=== PATIENT | female | born 1950 | race Caucasian/White ===

== ENCOUNTER 2017-01-24 07:34 | Day surgery (SDC) | payer OTHER ==
[2017-01-23 17:34] VITALS: BMI 25.6
[2017-01-24] MEDS ORDERED: PROPOFOL 20 ML ONE ×3 (09:40)
[2017-01-24] MEDS ORDERED: ROPIVACAINE HCL 0.5% 30ML VIAL ONE (09:43)
[2017-01-24] MEDS ORDERED: MIDAZOLAM HCL 2 MG/2 ML SINGLE DOSE VIAL ONE ×2 (09:51)
--- NOTE | 2017-01-24 10:03 | HP ---
Satellite [facility] - Chief Complaint Chief Complaint: right shoulder pain, weakness, poor ROM History of Present Illness: over 1 year s/p fall, right RTC tear History Source: Patient Limitations to Obtaining History: No Limitations - Past Medical History Allergies/Adverse Reactions: Allergies Allergy/AdvReac Type Severity Reaction Status Date / Time No Known Drug Allergies Allergy Verified 01/23/17 17:34 - Current Medications Current Medications: Home Medications Medication Instructions Recorded Aspirin Coated [Ecotrin -] 81 mg PO DAILY 01/23/17 Atorvastatin Ca [Lipitor] 20 mg PO HS 01/23/17 Levothyroxine [Synthroid -] 25 mcg PO DAILY 01/23/17 Meloxicam [Mobic] 15 mg PO DAILY 01/23/17 Nortriptyline HCl [Pamelor -] 25 mg PO HS 01/23/17 Omeprazole 20 mg PO DAILY 01/23/17 Satellite Physical Exam - Physical Examination Vital Signs: Vital Signs Period Temp Pulse Resp BP Sys/Victoria Pulse Ox Last 24 Hr 97.9 F-97.9 F 70-70 16-16 129-129/77-77 99 General Appearance: Well Nourished ENT: Clear Lung: Clear to auscultation Heart: Regular rate & rhythm Breasts: Soft Abdomen: Soft Extremities: No edema Satellite Impression/Plan - Impression/Plan Impression: right shoulder RTC tear, impingement, possible labral tear Operative Procedure: right shoulder arthroscopy, decompression, possible RTC and /or labral repair Date to be Performed: 01/24/17
[2017-01-24] MEDS ORDERED: PROMETHAZINE HCL 25 MG/1 ML VIAL IVPUSH PRN (10:40)
[2017-01-24] MEDS ORDERED: oxyCODONE HCL 5 MG TABLET PO PRN (10:40)
[2017-01-24] MEDS ORDERED: ONDANSETRON 4 MG/2 ML VIAL IVPUSH PRN (10:40)
[2017-01-24] MEDS ORDERED: LACTATED RINGERS SOLUTION 1,000 ML IV SCH (10:45)
[2017-01-24] MEDS ORDERED: ceFAZolin SODIUM 1 GM VIAL IVPB ONE (10:59)
[2017-01-24] MEDS ORDERED: ePHEDrine SULFATE 50 MG/1 ML AMPULE ONE (11:23)
--- NOTE | 2017-01-24 12:10 | OP ---
Operative Note - Note: Operative Date: 01/24/17 ([facility]) Pre-Operative Diagnosis: right shoulder rct, impingement Operation: right shoulder arthroscopy with SAD, DCE, mini-open RCR, lipoma excision Implants: 2 arthrex swivelocks Post-Operative Diagnosis: Same as Pre-op Surgeon: Tylor Whalen Pencil Maker: Sebastian Barksdale Anesthesiologist/FARM MARKETER: Judd Merritt Anesthesia: General, Local Specimens Removed: lipoma, shavings Estimated Blood Loss (mls): 10 Operative Report Dictated: Yes
[2017-01-24 14:53] VITALS: BP 114/62; PULSE 72; TEMP 97.5
--- NOTE | 2017-01-24 21:00 | OP ---
DATE OF OPERATION: 01/24/2017 PREOPERATIVE DIAGNOSES: Right shoulder rotator cuff tear, subacromial impingement, acromioclavicular joint arthritis, possible labral tear, and subcutaneous lipoma. SURGERY: Right shoulder arthroscopy, subacromial decompression, distal clavicle excision, mini open rotator cuff repair, and open lipoma excision. SURGEON: Tylor Whalen MD DIRECTOR FURNITURE: HEIDI Castro; . ANESTHESIA: Right interscalene block and laryngeal mask anesthesia. BLOOD LOSS: 50 mL. BLOOD GIVEN: None. FLUID REPLACEMENT: 700 mL. DRAINS: None. COMPLICATIONS: None. SPECIMEN: None. BLOOD GIVEN: None. This patient is a 66-year-old female with a preoperative diagnosis of a right shoulder subacromial impingement, rotator cuff tear, AC joint arthritis, subcutaneous lipoma, and possible labral tear. After understanding the potential risks, complications, alternatives, and benefits to surgical versus nonsurgical treatment, the patient elected to undergo this procedure. The patient was brought to the operating room, peripheral IV placed, IV sedation given. Then 1 g of IV Ancef was given. A right interscalene block was performed. LM anesthesia was induced. As mentioned, she was placed into the beach chair position with ample padding throughout. The right upper extremity was prepped and draped in sterile fashion. The bony landmarks were marked out with a marking pen. A posterior portal was established. A diagnostic glenohumeral arthroscopy was performed. The patient was seen to have a significant tear of the rotator cuff. It was complete but not particularly retracted and looked very fixable. The patient had a lot of intraarticular debris and synovitis. There was fraying of the labrum, and some arthritis of the humeral head. An anterior portal was established under direct visualization using spinal needle and number 15 scalpel blade. A green cannula was introduced into the glenohumeral joint. An ArthroCare wand and straight shaver was used to debride the undersurface of the rotator cuff, remove the debris, do a gentle debridement chondroplasty, and probe the labrum (which was fine, and it did not need to be fixed). A partial synovectomy was performed as well. Next, our attention turned to the subacromial space. The patient had a tremendous amount of inflammatory bursitis. An extensive debridement was done with the ArthroCare wand and the straight shaver. This revealed very significantly arthritic undersurface of the AC joint. There were large bony spurs to the undersurface of the acromion and the clavicle, and after the extensive bursectomy, a 5.5-mm oval bur was used to do a bony subacromial decompression as well as a distal clavicle excision. Once this was done, the shaver was reintroduced into the joint, and all debris was removed. A bursectomy was completed, and the rotator cuff was visualized from the side as well. It was a crescent shape. It looked quite fixable. Again, it was debrided and cleaned with the shaver, and the shaver and the bur were used to remove a large ridge on the humeral head and mildly decorticate the humeral head at the landing bed of the rotator cuff for future repair. Next, we used, under arthroscopic visualization, the Rollerion needle passer and put in 6 FiberWire sutures. We were able to mobilize it under direct visualization using the Mcneil elevator, and overall it came down quite nicely. Next, we converted to a mini open repair, extended the lateral portal incision with a number 15 scalpel blade. Subcutaneous hemostasis was achieved with Bovie cautery. First the Gelpi, then the Don retractors were used for direct visualization. Additional open bursectomy was done. The deltoid was split in line with its fibers, and overall I could see the rotator cuff quite well, and it came down quite nicely. We threaded 6 tails through an anterior Swivel-Lock and 6 tails through a posterior Swivel-Lock, and put them down into the humeral head in the standard fashion. The excess tails were removed. The humeral head moved as a unit with the rotator cuff. There was complete coverage and it was a very repairable rotator cuff tear. The area was copiously irrigated and washed out. Closure was done with 0 Vicryl in the deep deltoid layer after the rotator cuff repair. Next, our attention turned to a very large subcutaneous lipoma that the patient had between the acromion and undersurface of the skin. We reviewed it on MRI, and it did have the consistency of a normal lipoma, and under direct visualization it also looked like a large standard lipoma. There was nothing irregular about it. It was well circumscribed, not infiltrative, and not heterogeneous at all. Therefore, I did an open lipoma excision, as it was so big, on the superior surface of the right acromion. I did not feel the need to pass it off the field as specimen. The deep dermal layer was closed with 2-0 Vicryl suture, and the final skin reapproximation was done with a running subcuticular 3-0 V-Loc suture. The anterior and posterior portals were closed with 3-0 nylon in a fashion. The area was washed and dried, SwiftSet skin glue used on all the portals, and a 6-inch and two 4-inch Aquacels were used. The patient was taken down out of the beach chair position. A right shoulder immobilizer was placed. She was extubated. Total operative time was about 50 minutes. There were no complications during the case. The patient tolerated the procedure quite well and was brought to the ambulatory recovery room in stable condition. Elba [id number]
--- NOTE | 2017-01-25 14:50 | PATH ---
Surgical Pathology Report Patient Name: TORSTEN BOYLE [facility]. Rec. #: [id number] /Age/Gender: 1950 (Age: 66) / F Account: [id number] Location: [facility] Taken: 01/24/2017 Received: 01/24/2017 Reported: 01/25/2017 Physicians: Tylor Whalen M.D. Specimen(s) Received SHAVINGS Clinical History Right shoulder rotator cuff tear Final Diagnosis SOFT TISSUE, RIGHT SHOULDER, ARTHROSCOPIC SHAVINGS: SYNOVIUM AND FIBROCARTILAGE WITH MYXOHYALINE DEGENERATION. FRAGMENTS OF UNREMARKABLE BONE AND SKELETAL MUSCLE. Electronically Signed Lino Aviles M.D. Gross Description Received in formalin, labeled "right shoulder shavings" is a 3.5 x 3.2 x 0.4 cm aggregate of smith-yellow soft tissue fragments. A jewelry sales representative portion is submitted in one cassette. /01/24/201701/24/2017
== END 2017-01-24 14:53 | disposition home or self-care (01) ==
LOC: JASU-SURG 07:34
PROVIDERS: ATTEND Orthopaedic Surgery
PROC: 0PB94ZZ Excision of Right Clavicle, Percutaneous Endoscopic Approach (ICD-10-PCS; 2017-01-24)
PROC: 0LQ10ZZ Repair Right Shoulder Tendon, Open Approach (ICD-10-PCS; 2017-01-24)
PROC: 0JBD0ZZ Excision of Right Upper Arm Subcutaneous Tissue and Fascia, Open Approach (ICD-10-PCS; 2017-01-24)
PROC: 0RBJ4ZZ Excision of Right Shoulder Joint, Percutaneous Endoscopic Approach (ICD-10-PCS; principal; 2017-01-24 10:00)
DX: M75.101 Unspecified rotator cuff tear or rupture of right shoulder, not specified as traumatic (principal); M75.41 Impingement syndrome of right shoulder; M19.011 Primary osteoarthritis, right shoulder; D17.39 Benign lipomatous neoplasm of skin and subcutaneous tissue of other sites
CPT/HCPCS: 88304-TC; 94760

== ENCOUNTER 2017-03-30 08:58 | Day surgery (SDC) | payer OTHER ==
[2017-03-29 12:11] VITALS: BMI 26.5
[2017-03-30 11:26] VITALS: TEMP 98
[2017-03-30 12:59] VITALS: BP 118/82; PULSE 63
--- NOTE | 2017-04-02 13:22 | PATH ---
Surgical Pathology Report Patient Name: TORSTEN BOYLE [facility]. Rec. #: [id number] /Age/Gender: 1950 (Age: 66) / F Account: [id number] Location: U-ENDOSCOPY Taken: 03/30/2017 Received: 03/30/2017 Reported: 04/02/2017 Physicians: Roberto Benton M.D. Specimen(s) Received A: BX DISTA TRANSVERSE COLON POLYP B: BX PROXIMAL TRANSVERSE COLON POLYP C: BX RIGHT COLON POLYP D: BX COLON LIPOMA Clinical History Screening AVM; colon polyps; right colon lipoma; diverticulosis Final Diagnosis A. COLON, DISTAL TRANSVERSE, POLYP, POLYPECTOMY: ADENOMATOUS POLYP AND ADDITIONAL FRAGMENTS OF COLONIC MUCOSA WITH FOCAL SURFACE HYPERPLASTIC CHANGE. B.COLON, PROXIMAL TRANSVERSE, POLYP, BIOPSY: TUBULAR ADENOMA. C. COLON, RIGHT, POLYP, BIOPSY: TUBULAR ADENOMA. PROMINENT SUBMUCOSAL ADIPOSE TISSUE (SEE COMMENT). D. COLON, RIGHT, LIPOMA, BIOPSY: BENIGN COLONIC MUCOSA WITH PROMINENT SUBMUCOSAL ADIPOSE TISSUE (SEE COMMENT). Comment: The findings are compatible with lipoma in proper endoscopic settings. Electronically Signed Lino Aviles M.D. Gross Description A. Received in formalin, labeled "cold snared distal transverse polyp" are 2 smith, irregular portions of soft tissue measuring 0.3-0.6 cm in greatest dimension. The specimens are submitted in toto in one cassette. B. Received in formalin, labeled "biopsy proximal transverse polyp" is a smith, irregular portion of soft tissue measuring 0.3 cm in greatest dimension. The specimen is submitted in toto in one cassette. C. Received in formalin, labeled "biopsy right colon polyp" are 2 smith, irregular portions of soft tissue measuring 0.3 cm in greatest dimension. The specimens are submitted in toto in one cassette. D. Received in formalin, labeled "biopsy right lipoma" are 2 smith, irregular portions of soft tissue measuring 0.3-0.4 cm in greatest dimension. The specimens are submitted in toto in one cassette. [facility]/03/30/2017 [facility]/03/30/2017
== END 2017-03-30 12:45 | disposition home or self-care (01) ==
LOC: JASU-ENDO 08:58
PROVIDERS: ATTEND Internal Medicine Gastroenterology
PROC: 0DBF8ZX Excision of Right Large Intestine, Via Natural or Artificial Opening Endoscopic, Diagnostic (ICD-10-PCS; 2017-03-30)
PROC: 0DBK8ZX Excision of Ascending Colon, Via Natural or Artificial Opening Endoscopic, Diagnostic (ICD-10-PCS; 2017-03-30)
PROC: 0DBL8ZX Excision of Transverse Colon, Via Natural or Artificial Opening Endoscopic, Diagnostic (ICD-10-PCS; principal; 2017-03-30 10:00)
DX: Z12.11 Encounter for screening for malignant neoplasm of colon (principal); D12.2 Benign neoplasm of ascending colon; D12.3 Benign neoplasm of transverse colon; D17.5 Benign lipomatous neoplasm of intra-abdominal organs; K55.20 Angiodysplasia of colon without hemorrhage; K64.8 Other hemorrhoids
CPT/HCPCS: 88305-TC

== ENCOUNTER 2018-06-16 10:07 | Emergency (ER) | payer MEDICARE ==
[2018-06-16 10:16] VITALS: BP 134/69; PULSE 83; TEMP 98.9; BMI 25.8
--- NOTE | 2018-06-16 11:32 | PDOC ---
History of Present Illness - General Chief Complaint: Injury Stated Complaint: LEG AND KNEE PAIN DO TO A FALL Time Seen by Provider: 06/16/18 10:18 - History of Present Illness Initial Comments: 06/16/18 10:42 CHIEF COMPLAINT: fall HISTORY OF PRESENT ILLNESS: 67 yo F with hx of HTN and HLD presents to [facility] track s/p fall yesterday. Patient states she was walking down stairs and twisted her right foot/ankle and landed on her knees and hit her head on the right side against the wall. Patient states she did not hit her head on the ground and denies any vomiting or LOC, but reports a slight headache last night. Patient denies taking any anticoagulants. No recent travel or sick contacts. PAST MEDICAL HISTORY: Denies past medical history FAMILY HISTORY: Denies SOCIAL HISTORY: Denies tobacco, alcohol, illicit drug use. SURGICAL HISTORY: Denies ALLERGIES: No known drug allergies REVIEW OF SYSTEMS General/Constitutional: Denies fever or chills. Denies weakness, weight change. HEENT: Denies change in vision. Denies ear pain or discharge. Denies sore throat. Cardiovascular: Denies chest pain or shortness of breath. Respiratory: Denies cough, wheezing, or hemoptysis. Gastrointestinal: Denies nausea, vomiting, diarrhea or constipation. Denies rectal bleeding. Genitourinary: Denies dysuria, frequency, or change in urination. Musculoskeletal: Right foot/ankle pain and right knee pain. Denies neck or back pain. Skin: Abrasion to left black, no bleeding. Neurologic: Headache last night. Denies vertigo, loss of consciousness, or loss of sensation. Psychiatric: Denies depression or anxiety. PHYSICAL EXAM General Appearance: Well-appearing, appropriately dressed. No apparent distress. HEENT: EOMI, PERRLA, normal ENT inspection, normal voice, TMs normal, pharynx normal. No conjunctival pallor. No photophobia, scleral icterus. Neck: Supple. Trachea midline. No tenderness, rigidity, carotid bruit, stridor , lymphadenopathy, or thyromegaly. Respiratory/Chest: Lungs CTAB. No shortness of breath, chest tenderness, respiratory distress, accessory muscle use. No crackles, rales, rhonchi, stridor , wheezing, dullness Cardiovascular: RRR. S1, S2. No JVD, murmur, bradycardia, tachycardia. Vascular Pulses: Dorsalis-Pedis (R): 2+, Dorsalis-Pedis (L): 2+ Gastrointestinal/Abdominal: Normal bowel sounds. Abdomen soft, non-distended. No tenderness or rebound tenderness. No organomegaly, pulsatile mass, guarding , hernia, hepatomegaly, splenomegaly. Lymphatic: No adenopathy, tenderness. Musculoskeletal/Extremities: Superficial abrasion to left black, no bleeding. Tenderness and mild ecchymosis to R medial malleolus and over dorsum of right foot. Normal inspection. FROM of all extremities, normal capillary refill. Pelvis Stable. No CVA tenderness. No tenderness to extremities, pedal edema, swelling, erythema or deformity. Integumentary: Appropriate color, dry, warm. No cyanosis, erythema, jaundice or rash Neurologic: technical engineer II-XII intact. Fully oriented, alert. Appropriate mood/affect. Motor strength 5/5. No appreciable EOM palsy, facial droop or sensory deficit. A&Ox3, follow commands, respond appropriately CN2-12: conjugate gaze, pupil round, equal and reactive to light. Visual field full to confrontation. EOMI without nystagmus, pursuit is smooth without saccade. Facial sensation and muscle activation intact bilaterally. Hearing intact bilaterally. Palate elevate symmetrically. Shoulder shrug and neck turn full strength. Tongue protrude midline. Motor: UE and LE strength 5/5 throughout bilaterally. Sensory: pin prick & temp : BUE & BLE intact and equal bilaterally Vibration & propioception: intact bilaterally at 1st MCP and MTP joints. no sensory level noted on trunk Cerebellar: Rapid-alternating movement with regular rhythm without bradykinesia. [id number] and [id number] intact bilaterally without dysmetria or overshoot. Gait narrow based. No shuffling. Full hip flexion and knee flexion. Negative Romberg No involuntary movement noted. No pronator drift. No clonus. Past History - Past Medical History Allergies/Adverse Reactions: Allergies Allergy/AdvReac Type Severity Reaction Status Date / Time No Known Drug Allergies Allergy Verified 06/16/18 10:16 Home Medications: Ambulatory Orders Aspirin Coated [Ecotrin -] 81 mg PO DAILY 01/23/17 Atorvastatin Ca [Lipitor] 20 mg PO HS 01/23/17 Levothyroxine [Synthroid -] 25 mcg PO DAILY 01/23/17 Nortriptyline HCl [Pamelor -] 25 mg PO HS 01/23/17 Omeprazole 20 mg PO DAILY 01/23/17 Meloxicam 7.5 mg PO DAILY #7 tablet 06/16/18 Anemia: No Asthma: No Cancer: No Cardiac Disorders: No CVA: No COPD: No CHF: No Dementia: No Diabetes: No GI Disorders: No Disorders: No HTN: No Hypercholesterolemia: Yes Liver Disease: No Seizures: No Thyroid Disease: Yes (HYPOTHYROIDISM) - Surgical History Abdominal Surgery: No Appendectomy: No Cardiac Surgery: No Cholecystectomy: No Lung Surgery: No Neurologic Surgery: No Orthopedic Surgery: No (RIGHT SHOULDER MUSCLE TEAR SURGERY) - Suicide/Smoking/Psychosocial Hx Smoking History: Never smoked Have you smoked in the past 12 months: No Hx Alcohol Use: No Drug/Substance Use Hx: No Substance Use Type: None Hx Substance Use Treatment: No *Physical Exam - Vital Signs Last Vital Signs Temp Pulse Resp BP Pulse Ox 98.9 F 83 18 134/69 99 06/16/18 10:12 06/16/18 10:12 06/16/18 10:12 06/16/18 10:12 06/16/18 10:12 ED Treatment Course - RADIOLOGY Radiology Studies Ordered: Category Date Time Status HEAD CT WITHOUT CONTRAST [CT] Stat CT Scan 06/16/18 10:41 Ordered ANKLE & FOOT-RIGHT* [RAD] Stat Radiology 06/16/18 10:41 Ordered KNEE 3 POS-RIGHT [RAD] Stat Radiology 06/16/18 10:41 Ordered Medical Decision Making - Medical Decision Making 06/16/18 11:51 67 yo F with hx of HTN and HLD presents to fast track s/p fall yesterday. -Head CT, knee/ft/ankle x-ray Patient is well appearing, neurological intact with no focal deficits, is at baseline per . Imaging all negative. Advised patient to f/u with neurology by the end of the week for further evaluation and of signs of return to ER. Patient and verbalized understanding and agree to plan. *DC/Admit/Observation/Transfer Diagnosis at time of Disposition: Fall Qualifiers: Encounter type: initial encounter Qualified Code(s): W19.XXXA - Unspecified fall, initial encounter Right foot sprain Qualifiers: Encounter type: initial encounter Qualified Code(s): S93.601A - Unspecified sprain of right foot, initial encounter - Discharge Dispostion Disposition: HOME Condition at time of disposition: Stable Decision to Admit order: No - Prescriptions Prescriptions: Meloxicam 7.5 mg PO DAILY #7 tablet - Referrals Referrals: Dany Garcia MD [Primary Care Provider] - Frank Almanza MD [Staff Physician] - - Patient Instructions Printed Discharge Instructions: How to Prevent Falls Additional Instructions: Please follow up with neurology by the end of this week for further evaluation. Take medications as prescribed. If you develop loss of memory, vomiting, change in vision, difficulty speaking or swallowing, or your family members notice a change in behavior, please return to the ER immediately. - Post Discharge Activity
== END 2018-06-16 12:03 | disposition home or self-care (01) ==
LOC: JERFT 10:07
DX: S93.601A Unspecified sprain of right foot, initial encounter (principal); R51 Headache; W10.8XXA Fall (on) (from) other stairs and steps, initial encounter; Y93.89 Activity, other specified; Y92.038 Other place in apartment as the place of occurrence of the external cause; Y99.8 Other external cause status; I10 Essential (primary) hypertension; E78.5 Hyperlipidemia, unspecified; E03.9 Hypothyroidism, unspecified
CPT/HCPCS: 70450-TC; 73562-TC-RT-FY; 73610-TC-RT-FY; 73630-TC-RT-FY; 99281-25

== ENCOUNTER 2020-07-19 05:25 | Day surgery (SDC) | payer MEDICARE ==
[2020-07-15 16:33] VITALS: BMI 25.1
[2020-07-19 10:50] VITALS: TEMP 98.2
[2020-07-19 11:21] VITALS: BP 121/55; PULSE 66
== END 2020-07-19 11:35 | disposition home or self-care (01) ==
LOC: JASU-ENDO 05:25
PROVIDERS: ATTEND Internal Medicine Gastroenterology
PROC: 0DBN8ZX Excision of Sigmoid Colon, Via Natural or Artificial Opening Endoscopic, Diagnostic (ICD-10-PCS; principal; 2020-07-19 10:00)
DX: Z12.11 Encounter for screening for malignant neoplasm of colon (principal); Z86.010 Personal history of colon polyps; D12.5 Benign neoplasm of sigmoid colon; K57.30 Diverticulosis of large intestine without perforation or abscess without bleeding; K64.8 Other hemorrhoids
CPT/HCPCS: 88305-TC